=== PATIENT | male | born 1995 | race Two or more races ===

== ENCOUNTER 2020-07-13 11:06 | Emergency (ER) | payer SELFPAY ==
[~2020-07-13] VITALS: Ht 175.3 cm; Wt 72.6 kg
--- NOTE | 2020-07-13 11:15 | NUR ---
ARLENE SANZ FROM C/O POSSIBLE OVERDOSE ON OPIATES. NARCAN GIVEN IN FIELD. PT REFUSED VITAL SIGNS. PATIENT AWAKE, ALERT AND ORIENTED X4, BREATHING EVEN AND UNLABORED, NO SOB NOTED. REFUSED TO BE TREATED. DR. MARIEE AT BEDSIDE FOR EVAL. NO DISTRESS NOTED.
--- NOTE | 2020-07-13 11:20 | NUR ---
Patient alert and oriented x4, coherent, ambulatory with steady gait. Insisted on leaving, refused any medical treatment and to be stopped by staff, Dr. hernandez present. IV removed. Catheter intact and site benign. Pressure and 4x4 applied to site. No bleeding noted. Patient eloped from the facility in stable condition.
== END 2020-07-13 11:44 | disposition left against medical advice (07) ==
LOC: ER 11:09
DX: F10.10 Alcohol abuse, uncomplicated (principal); R45.1 Restlessness and agitation; Y90.9 Presence of alcohol in blood, level not specified